=== PATIENT | female | born 1995 | race Caucasian/White ===

== ENCOUNTER → 2024-08-15 09:27 | Outpatient (BNVA) | payer OTHER, SELFPAY | PROVIDERS: Visit Provider Physician Assistant Medical | DX: S60.470A Other superficial bite of right index finger, initial encounter (principal); W50.3XXA Accidental bite by another person, initial encounter; L03.011 Cellulitis of right finger | CPT/HCPCS: 86706; 99203 ==

== ENCOUNTER → 2024-08-19 11:29 | Outpatient (BNVA) | payer OTHER, SELFPAY | PROVIDERS: Visit Provider Physician Assistant Medical | DX: S60.470D Other superficial bite of right index finger, subsequent encounter (principal); L03.011 Cellulitis of right finger; W50.3XXD Accidental bite by another person, subsequent encounter | CPT/HCPCS: 99213 ==

== ENCOUNTER → 2024-09-02 10:05 | Outpatient (BNVA) | payer OTHER, SELFPAY | PROVIDERS: Visit Provider Physician Assistant Medical | DX: S60.470D Other superficial bite of right index finger, subsequent encounter (principal); X50.3XXD Overexertion from repetitive movements, subsequent encounter; L03.011 Cellulitis of right finger | CPT/HCPCS: 99213 ==

== ENCOUNTER 2024-09-06 09:02 | Outpatient (RCR) | payer OTHER, MEDICAID, SELFPAY ==
--- NOTE | 2024-09-19 10:37 | MHC.OT.DC ---
[address] [phone] F: [phone] Occupational Therapy Discharge Note Patient Name: Alexia Guardado Provider: Reyna Flores Diagnosis: Bite Injury (R) IF Date of Surgery: Date of Evaluation: 08/22/24 Date of Discharge: Treatments to Date: 3 Cancellations to Date: No Shows to Date: Discharge Status: Patient Elected to Stop Discharge Summary: Patient is d/c'd from therapy as she has no future appointments scheduled. Electronically Signed By: Dorie Mensah OTR/L, CLT Reviewed/agree with student documentation: N/A Therapist: Please Sign and return to therapist, thank you for your referral.
== END 2025-08-13 10:33 | disposition home or self-care (01) ==
LOC: HO.OT 09:02
PROVIDERS: Visit Provider Physician Assistant Medical
DX: S67.190D Crushing injury of right index finger, subsequent encounter (principal)
CPT/HCPCS: 97110; 97140; 97165

== ENCOUNTER 2024-09-16 13:13 | Outpatient (REF) | payer OTHER, MEDICAID, SELFPAY | END 2024-09-16 13:14 | disposition home or self-care (01) | LOC: HO.HOSX 13:13 | PROVIDERS: Visit Provider Orthopaedic Surgery | DX: Z13.89 Encounter for screening for other disorder (principal) ==

== ENCOUNTER 2024-09-24 08:35 | Outpatient (AMB) | payer OTHER, MEDICAID, SELFPAY ==
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
[2024-09-24 08:50] VITALS: BMI 45.2
== END 2024-09-24 09:09 | disposition home or self-care (01) ==
PROVIDERS: Visit Provider Orthopaedic Surgery
DX: S61.259A Open bite of unspecified finger without damage to nail, initial encounter (principal); W50.3XXA Accidental bite by another person, initial encounter; R20.3 Hyperesthesia
CPT/HCPCS: 99203

== ENCOUNTER → 2024-09-24 08:35 | Outpatient (BNVA) | payer OTHER, MEDICAID, SELFPAY | PROVIDERS: Visit Provider Orthopaedic Surgery | DX: S61.250A Open bite of right index finger without damage to nail, initial encounter (principal); W50.3XXA Accidental bite by another person, initial encounter; Y93.F9 Activity, other caregiving; Y92.219 Unspecified school as the place of occurrence of the external cause; Y99.0 Civilian activity done for income or pay; R20.3 Hyperesthesia | CPT/HCPCS: 99202 ==